=== PATIENT | male | born 1960 | race Caucasian/White ===

== ENCOUNTER 2019-08-21 06:30 | Day surgery (SDC) | payer BC, OTHER ==
[2019-08-21] MEDS ORDERED: Lactated Ringers 1,000 ML IV SCH (07:00)
[2019-08-21] MEDS ORDERED: DIPRIVAN 200 MG/20 ML IV ONE ×2 (08:09→08:24)
--- NOTE | 2019-08-21 09:41 | OP ---
SURGERY DATE/TIME: 08/21/2019 0808 PREOPERATIVE DIAGNOSIS: Screening colonoscopy. POSTOPERATIVE DIAGNOSES: 1) Normal colon. 2) Poor bowel prep. PROCEDURE: Colonoscopy. SURGEON: Luis Wakefield M.D. ANESTHESIA: MAC by Gregg Oscar CRNA. ESTIMATED BLOOD LOSS: None. SPECIMENS: None. DESCRIPTION OF PROCEDURE: After informed written consent was obtained, the patient was taken to the endoscopy suite. He underwent monitored anesthesia and digital rectal exam showed normal sphincter tone and no internal lesions. The scope was inserted into the rectum and sequentially the entire colonic mucosa was traversed. There was semisolid and liquid stool present throughout most of the length of the colon. The cecum was reached and verified with direct visualization of the ileocecal valve. Upon withdrawal careful mucosal inspection revealed no gross abnormalities but again view was limited in areas due to semisolid stool present. Prior to withdrawal retroflexion was performed and showed no internal lesions. The scope was removed and the patient was transferred to the recovery room in good condition.
[2019-08-21 09:57] VITALS: BP 139/71; PULSE 64; O2SAT 98
== END 2019-08-21 09:45 | disposition home or self-care (01) ==
LOC: SDC 06:30
PROVIDERS: ATTEND Family Medicine
DX: Z12.11 Encounter for screening for malignant neoplasm of colon (principal); E11.9 Type 2 diabetes mellitus without complications
CPT/HCPCS: J2704